=== PATIENT | female | born 1985 | race Caucasian/White ===

== ENCOUNTER 2016-09-30 01:38 | Emergency (ER) | payer OTHER ==
[2016-09-30 02:21] LABS: ALBUMIN 4.1 gm/dl (3.4-5.0); POTASSIUM 3.7 mMol/L (3.5-5.1)
[2016-09-30] MEDS ORDERED: SODIUM CHLORIDE 0.9% 1000ML 1,000 ML IV ONE ×2 (02:23→02:51)
[2016-09-30] MEDS ORDERED: SODIUM CHLORIDE 0.9% FLUSH 10 ML SOL IV PRN (02:23)
[2016-09-30 02:32] LABS: BASOPHILS % (AUTO) 1 % (0-3); EOSINOPHILS % (AUTO) 3 % (0-9); HEMATOCRIT 36 % (35-47); MEAN CORPUSCULAR VOLUME 90 fL (81-99); MONOCYTES % (AUTO) 6.4 % (0-12); NEUTROPHILS % (AUTO) 49.4 % (37-80)
[2016-09-30 02:41] LABS: ANISOCYTOSIS SLIGHT AMT
[2016-09-30 02:46] LABS: AMPHETAMINES NEGATIVE (NEGATIVE); METHADONE NEGATIVE (NEGATIVE); OPIATES(OP13) NEGATIVE (NEGATIVE); OXYCODONE(OXY) NEGATIVE (NEGATIVE); PROPOXYPHENE(PPX) NEGATIVE (NEGATIVE); TRICYCLIC ANTIDEPRESSANTS NEGATIVE (NEGATIVE)
[2016-09-30 03:04] VITALS: TEMP 97.9
[2016-09-30] MEDS ORDERED: SODIUM CHLORIDE 0.9% 250 ML 250 ML IV ONE (03:23)
[2016-09-30 06:17] VITALS: BP 95/51; PULSE 85; RESP 18; O2SAT 94
== END 2016-09-30 06:53 | disposition home or self-care (01) | DRG 897 ==
LOC: ED 01:38
DX: F10.129 Alcohol abuse with intoxication, unspecified (principal); R55 Syncope and collapse; Y90.8 Blood alcohol level of 240 mg/100 ml or more; E86.0 Dehydration
CPT/HCPCS: 36415; 80053; 80305; 80307; 85025; 93005; 96365; 96366; 99284; 99285